=== PATIENT | female | born 1955 | race Hispanic/Latino ===

== ENCOUNTER 2019-12-04 05:22 | Day surgery (SDC) | payer OTHER ==
[2019-12-04] VITALS (9 sets, daily range): BP systolic 92–103; BP diastolic 55–67
[~2019-12-04] VITALS: Ht 154.9 cm; Wt 63.1 kg
[~2019-12-04 05:22] MED LIST: AMIO200T6 PO; ATEN25TA PO; DABI150C PO; ESCI5TAB PO; SPIR25TA6 PO
--- NOTE | 2019-12-04 06:00 | NUR ---
PATIENT ARRIVED TO DAY PATIENT ACCOMPANIED BY HER SELF. PATIENT AAOX3, RESPIRATIONS UNLABORED, VITAL SIGNS STABLE, DENIES ANY PAIN AT THIS TIME. HOSPITAL ROUTINE EXPLAINED TO PATIENT, PROCEDURE VERIFIED WITH PATIENT. ALL QUESTIONS ANSWERED.
[2019-12-04 06:16] LABS: BASOPHILS % (AUTO) 0.9 % (0.0-5.0); EOSINOPHILS % (AUTO) 2.2 % (0.0-8.0); HEMATOCRIT 45.2 % (36-48); LYMPHOCYTES % (AUTO) 14.6 % (21.0-51.0); MEAN CORPUSCULAR HEMOGLOBIN 31.1 pg (27.0-33.0); MEAN CORPUSCULAR HGB CONC 32.3 g/dL (32.0-36.0); MEAN CORPUSCULAR VOLUME 96.2 fL (79-99); MONOCYTES % (AUTO) 10.9 % (3.0-13.0); NEUTROPHILS % (AUTO) 70.9 % (40.0-77.0); PLATELET COUNT (AUTO) 297 K/uL (130-400); RED CELL DISTRIBUTION WIDTH 14.2 % (11.0-15.5); WHITE BLOOD COUNT (AUTO) 6.5 K/uL (4.8-10.8)
[2019-12-04 06:25] LABS: CREATININE 1.1 mg/dL (0.5-1.5); POTASSIUM 4.7 mmol/L (3.5-5.1)
[2019-12-04] MEDS ORDERED: SODIUM CHLORIDE 0.9% 1000ML 1,000 ML IV ONE (07:07)
[2019-12-04] MEDS ORDERED: BUPIVACAINE/PF 0.25% 30ML VIAL IJ ONE (07:16)
[2019-12-04] MEDS ORDERED: CEFAZOLIN SODIUM 1 GM VIAL ONE (07:16)
[2019-12-04] MEDS ORDERED: LIDOCAINE HCL 1% MDV 50ML VIAL ONE (07:17)
[2019-12-04] MEDS ORDERED: MEPERIDINE-PF 25 MG/ML SYG ONE ×3 (07:17→08:37)
[2019-12-04] MEDS ORDERED: MIDAZOLAM HCL 1 MG/ML 2ML VIAL ONE ×3 (07:17→08:37)
[2019-12-04 07:43] LABS: INR 1.14 (0.85-1.15); PARTIAL THROMBOPLASTIN TIME 26.4 SEC (26.3-35.5); PROTHROMBIN TIME 12.3 SEC (9.6-11.6)
--- NOTE | 2019-12-04 07:50 | NUR ---
PATIENT TRANSFERRED TO [employer] TECHNICIAN VIA BED BY [facility].
[2019-12-04] MEDS ORDERED: CEFAZOLIN SODIUM 1 GM VIAL IVP ONE (08:00)
[2019-12-04] MEDS ORDERED: ACETAMINOPHEN-CODEINE 300/30MG TAB PO PRN (09:30)
[2019-12-04] MEDS ORDERED: TRAM50TA4 PO (09:32)
--- NOTE | 2019-12-04 09:52 | NUR ---
PATIENT RETURNED FROM [facility] [facility] VIA BED BY [employer]. PATIENT AAOX3, RESPIRATIONS UNLABORED, VITAL SIGNS STABLE, DENIES ANY PAIN AT THIS TIME. DRESSING TO LEFT UPPER CHEST IS DRY/INTACT. BRUISING NOTED AROUND DRESSING AND MODERATE SWELLING.
--- NOTE | 2019-12-04 10:05 | NUR ---
SITE CHECK: DRESSING TO LEFT UPPER CHEST IS DRY/INTACT. BRUISING NOTED AROUND DRESSING AND MODERATE SWELLING, NO DRAINAGE OR BLEEDING NOTED.
--- NOTE | 2019-12-04 10:20 | NUR ---
SITE CHECK: DRESSING TO LEFT UPPER CHEST IS DRY/INTACT. BRUISING NOTED AROUND DRESSING AND MODERATE SWELLING, NO DRAINAGE OR BLEEDING NOTED.
--- NOTE | 2019-12-04 10:35 | NUR ---
SITE CHECK: DRESSING TO LEFT UPPER CHEST IS DRY/INTACT. BRUISING NOTED AROUND DRESSING AND MODERATE SWELLING, NO DRAINAGE OR BLEEDING NOTED.
--- NOTE | 2019-12-04 11:05 | NUR ---
SITE CHECK: DRESSING TO LEFT UPPER CHEST IS DRY/INTACT. BRUISING NOTED AROUND DRESSING AND MODERATE SWELLING, NO DRAINAGE OR BLEEDING NOTED.
--- NOTE | 2019-12-04 11:35 | NUR ---
SITE CHECK: DRESSING TO LEFT UPPER CHEST IS DRY/INTACT. BRUISING NOTED AROUND DRESSING AND MODERATE SWELLING, NO DRAINAGE OR BLEEDING NOTED.
--- NOTE | 2019-12-04 12:05 | NUR ---
SITE CHECK: DRESSING TO LEFT UPPER CHEST IS DRY/INTACT. BRUISING NOTED AROUND DRESSING AND MODERATE SWELLING, NO DRAINAGE OR BLEEDING NOTED.
--- NOTE | 2019-12-04 12:35 | NUR ---
SITE CHECK: DRESSING TO LEFT UPPER CHEST IS DRY/INTACT. BRUISING NOTED AROUND DRESSING AND MODERATE SWELLING, NO DRAINAGE OR BLEEDING NOTED.
--- NOTE | 2019-12-04 13:05 | NUR ---
DISCHARGE INSTRUCTIONS PROVIDED TO PATIENT AND PATIENT'S SPOUSE. HANDOUTS PROVIDED AND PRESCRIPTIONS PROVIDED, FOLLOW UP APPOINTMENT PROVIDED WELL. ALL QUESTIONS/CONCERNS ADDRESSED.
--- NOTE | 2019-12-04 13:20 | NUR ---
PATIENT DISCHARGED FROM FACILITY VIA WHEELCHAIR, PATIENT ASSISTED INTO PRIVATE VEHICLE DRIVEN BY SPOUSE
== END 2019-12-04 13:25 | disposition home or self-care (01) ==
LOC: DAH 05:22
PROVIDERS: ATTEND Internal Medicine Cardiovascular Disease
DX: I42.2 Other hypertrophic cardiomyopathy (principal); I47.2 Ventricular tachycardia; Z91.048 Other nonmedicinal substance allergy status; Z79.899 Other long term (current) drug therapy; Z79.01 Long term (current) use of anticoagulants
CPT/HCPCS: 33263; 36415; 80048; 85025; 85610; 85730; 93005; A4215; A4216; A4221; A4222; A4223 ×3; A4606; A4663; A6206; A6402; C1721; J0690; J2175 ×3; J2250 ×2; J3490 ×2; J7030; 99156; 99157